=== PATIENT | female | born 1990 | race Hispanic/Latino ===

== ENCOUNTER 2022-11-26 05:20 | Inpatient (IN) | payer BC, MEDICAID ==
[2022-11-25 11:06] LABS: Hemoglobin 10.3 g/dL (12.0-15.5); Platelet Count 244 10x3/uL (150-450)
[2022-11-25 11:42] LABS: HBSAg Index 0.23 S/CO (0-0.99); Hep B Surf Ag Non-Reactive S/CO (NonReactive); Syphilis Antibody Nonreactive (Nonreactive); Syphilis Antibody Index 0.05 S/CO (<1.00 Non-Reactive)
[2022-11-26] MEDS ORDERED: Famotidine/PF 20 mg/2ml Vial SLOW IVP PRN (06:09)
[2022-11-26] MEDS ORDERED: Ondansetron PF 4 MG/2 ML Vial IVP PRN ×3 (06:09→11:25)
[2022-11-26] MEDS ORDERED: NS w/ Oxytocin 30 units 500 ML IV SCH ×2 (06:09→11:25)
[2022-11-26] MEDS ORDERED: CEFAZOLIN 2 GM in Sodium Chloride 0.9% 100 ML IVPB SCH (06:09)
[2022-11-26] MEDS ORDERED: Lactated Ringer's 1,000 ML IV SCH (06:09)
[2022-11-26] MEDS ORDERED: Azithromycin 500 MG in Sodium Chloride 0.9% 250 ML 250 ML IVPB SCH (06:09)
[2022-11-26] MEDS ORDERED: Promethazine HCl 25 MG/ML VIAL IM PRN ×3 (06:09→11:25)
[2022-11-26] MEDS ORDERED: hydrALAZINE 20 MG/ML VIAL SLOW IVP PRN ×2 (06:09→11:25)
[2022-11-26] MEDS ORDERED: Methylergonovine 0.2 MG/ML VIAL IM PRN (06:09)
[2022-11-26] MEDS ORDERED: Diphenoxylate HCl/Atropine Tablet PO PRN (06:09)
[2022-11-26] MEDS ORDERED: Carboprost 250 MCG/ML AMP IM PRN (06:09)
[2022-11-26] MEDS ORDERED: Misoprostol 200 MCG TAB PR PRN (06:09)
[2022-11-26] MEDS ORDERED: Bicitra 30 ML UDCUP PO PRN (06:09)
[2022-11-26] MEDS ORDERED: Tranexamic Acid 1,000 MG/10 ML VIAL IVP PRN (06:09)
[2022-11-26 06:10] VITALS: BMI 31.6
[2022-11-26] MEDS ORDERED: Morphine PF 10 MG/10 ML VIAL ONE (07:11)
[2022-11-26] MEDS ORDERED: ePHEDrine Sulfate 50 MG/10 ML VIAL ONE (07:11)
[2022-11-26] MEDS ORDERED: Oxytocin 10 UNITS/ML VIAL ONE ×2 (07:12→08:41)
[2022-11-26] MEDS ORDERED: Phenylephrine 40 MG/NS 250 ML 250 ML ONE (07:12)
[2022-11-26] MEDS ORDERED: Ondansetron PF 4 MG/2 ML Vial ONE (07:12)
[2022-11-26] MEDS ORDERED: Ketorolac Tromethamine 30 MG/ML VIAL ONE (07:12)
[2022-11-26] MEDS ORDERED: Promethazine HCl 25 MG SUPP PR PRN (07:24)
[2022-11-26] MEDS ORDERED: Ondansetron HCl/PF 4 MG/2 ML Vial IVP PRN (07:24)
[2022-11-26] MEDS ORDERED: diphenhydrAMINE 50 MG/ML VIAL IVP PRN (07:24)
[2022-11-26] MEDS ORDERED: Meperidine HCl/PF 25 MG/ML VIAL SLOW IVP PRN (07:24)
[2022-11-26] MEDS ORDERED: Naloxone HCl 0.4 mg/ml Vial IV PRN (07:24)
[2022-11-26] MEDS ORDERED: Fentanyl 100 MCG/2 ML VIAL SLOW IVP PRN (07:24)
[2022-11-26] MEDS ORDERED: Moisturizing Cream (Eucerin) 113 GM JAR TOP PRN (07:24)
[2022-11-26] MEDS ORDERED: Naloxone HCl 0.4 mg/ml Vial IVP PRN ×2 (07:24)
[2022-11-26] MEDS ORDERED: Communication Order-Pharmacy FS SCH (07:30)
[2022-11-26] MEDS ORDERED: Methylergonovine 0.2 MG/ML VIAL ONE (08:39)
[2022-11-26] MEDS ORDERED: Tranexamic Acid 1,000 MG/10 ML VIAL ONE (08:39)
[2022-11-26] MEDS ORDERED: PHENYLEPHRINE-NS 100 MCG/ML 10 ML SYRINGE ONE (08:40)
[2022-11-26] MEDS ORDERED: Lanolin Ointment 7 GM TUBE TOP PRN (11:25)
[2022-11-26] MEDS ORDERED: Bisacodyl 10 MG SUPP PR PRN (11:25)
[2022-11-26] MEDS ORDERED: diphenhydrAMINE 25 MG CAP PO PRN (11:25)
[2022-11-26] MEDS ORDERED: Boostrix 0.5 ML (Tdap) VIAL (>/=7 yrs of age) IM ONE (11:25)
[2022-11-26] MEDS ORDERED: Docusate 100 MG CAP PO SCH (12:00)
[2022-11-26] MEDS ORDERED: Prenatal Vitamin 1 TAB PO SCH (12:00)
[2022-11-26] MEDS ORDERED: Ferrous Sulfate 325 MG TAB PO SCH (12:00)
[2022-11-26] MEDS ORDERED: Ketorolac Tromethamine 30 MG/ML VIAL IVP SCH (14:30)
[2022-11-26] MEDS ORDERED: Ketorolac Tromethamine 30 MG/ML VIAL IVP PRN (14:30)
[2022-11-26] MEDS: Ketorolac Tromethamine 30 MG/ML VIAL IVP SCH ×2 (14:49→20:37)
[2022-11-26] MEDS ORDERED: Meperidine HCl/PF 25 MG/ML VIAL IM PRN (19:30)
[2022-11-26] MEDS ORDERED: HYDROcodone/Acetaminophen 5/325 mg Tablet PO PRN (19:30)
[2022-11-26] MEDS: Docusate 100 MG CAP PO SCH (20:37)
[2022-11-26] MEDS: Simethicone Chewable 80 MG TAB PO PRN (20:37)
[2022-11-26] MEDS: Ferrous Sulfate 325 MG TAB PO SCH (21:21)
[2022-11-27] MEDS: Simethicone Chewable 80 MG TAB PO PRN ×2 (03:24→16:15)
[2022-11-27] MEDS: Ketorolac Tromethamine 30 MG/ML VIAL IVP SCH ×2 (03:24→08:30)
[2022-11-27 03:36] LABS: Hemoglobin 8.6 g/dL (12.0-15.5); Mean Corpuscular HGB CONC 31.7 g/dL (32.0-36.0); Mean Corpuscular Hemoglobin 24.6 pg (27.0-33.0); Mean Corpuscular Volume 77.4 fl (81.6-98.3); Mean Platelet Volume 12.5 fl (7.4-10.4); Platelet Count 193 10x3/uL (150-450); RBC Distribution Width 12.7 % (11.5-14.5); White Blood Cell (WBC) Count 8.9 10x3/uL (3.5-10.5)
[2022-11-27] MEDS: Docusate 100 MG CAP PO SCH ×2 (08:29→21:38)
[2022-11-27] MEDS: Ferrous Sulfate 325 MG TAB PO SCH ×2 (08:29→21:38)
[2022-11-27] MEDS: Prenatal Vitamin 1 TAB PO SCH (08:29)
[2022-11-27] MEDS: Ibuprofen 800 MG TAB PO SCH ×2 (14:21→21:38)
[2022-11-27] MEDS: metFORMIN 500 MG TAB PO SCH (19:52)
[2022-11-27] MEDS ORDERED: Lantus 1000 UNITS/10 ML VIAL SC SCH (21:00)
[2022-11-28] MEDS: Ibuprofen 800 MG TAB PO SCH ×3 (05:14→21:53)
[2022-11-28] MEDS: metFORMIN 500 MG TAB PO SCH ×2 (07:53→18:46)
[2022-11-28] MEDS: Docusate 100 MG CAP PO SCH ×2 (07:53→21:53)
[2022-11-28] MEDS: Prenatal Vitamin 1 TAB PO SCH (07:53)
[2022-11-28] MEDS: Ferrous Sulfate 325 MG TAB PO SCH ×2 (08:04→21:53)
[2022-11-28] MEDS: Lantus 1000 UNITS/10 ML VIAL SC SCH (21:53)
[2022-11-29] MEDS: Ibuprofen 800 MG TAB PO SCH ×3 (05:21→20:51)
[2022-11-29] MEDS: Docusate 100 MG CAP PO SCH ×2 (08:51→20:52)
[2022-11-29] MEDS: metFORMIN 500 MG TAB PO SCH ×2 (08:51→17:55)
[2022-11-29] MEDS: Prenatal Vitamin 1 TAB PO SCH (08:51)
[2022-11-29] MEDS: Ferrous Sulfate 325 MG TAB PO SCH ×2 (08:51→22:39)
[2022-11-29] MEDS: HYDROcodone/Acetaminophen 5/325 mg Tablet PO PRN (14:27)
[2022-11-29] MEDS: Lantus 1000 UNITS/10 ML VIAL SC SCH (22:39)
[2022-11-30] MEDS: Ibuprofen 800 MG TAB PO SCH (06:04)
[2022-11-30] MEDS: HYDROcodone/Acetaminophen 5/325 mg Tablet PO PRN ×2 (06:04→09:54)
[2022-11-30 07:04] LABS: Glucose 100 mg/dL (70-105)
[2022-11-30 08:51] VITALS: BP 135/66; TEMP 98.4
[2022-11-30] MEDS: Prenatal Vitamin 1 TAB PO SCH (09:51)
[2022-11-30] MEDS: Ferrous Sulfate 325 MG TAB PO SCH (09:51)
[2022-11-30] MEDS: Docusate 100 MG CAP PO SCH (09:51)
[2022-11-30] MEDS: metFORMIN 500 MG TAB PO SCH (09:51)
== END 2022-11-30 11:30 | disposition home or self-care (01) | DRG 786 ==
LOC: CSHLD 05:20 → CSHPP 11:10
PROVIDERS: ADMIT Family Medicine; ATTEND Family Medicine
PROC: 10D00Z1 Extraction of Products of Conception, Low, Open Approach (ICD-10-PCS; principal; 2022-11-26)
DX: O34.211 Maternal care for low transverse scar from previous cesarean delivery (principal); O24.12 Pre-existing type 2 diabetes mellitus, in childbirth; E11.8 Type 2 diabetes mellitus with unspecified complications; Z3A.37 37 weeks gestation of pregnancy; Z37.0 Single live birth; Z79.4 Long term (current) use of insulin; Z79.84 Long term (current) use of oral hypoglycemic drugs; Z98.890 Other specified postprocedural states; O36.63X0 Maternal care for excessive fetal growth, third trimester, not applicable or unspecified
CPT/HCPCS: 36415; 36416; 51702; 82947; 85014; 85018; 85027; 85049; 86780; 86850; 86900; 86901; 87340; J1815; J1885; J2210; J2274; J2405; J2590; J3490; S0028